=== PATIENT | female | born 1940 | race Caucasian/White ===

== ENCOUNTER 2016-08-28 15:28 | Emergency (ER) | payer OTHER ==
[~2016-08-28] VITALS: Ht 168.9 cm; Wt 105.0 kg
[~2016-08-28 15:28] MED LIST: ATOR10TA PO; BENA25MI PO; BUME1TAB PO; CALCCHW6 PO; E-40CAP PO; FISH1000 PO; FLON0.053 EACH NARE; HYDR-3535 PO; LEVO.025 PO; MACR100C PO; MULTTAB62 PO; OMEP20TA39 PO; RIVA20 PO
[2016-08-28 15:36] VITALS: BP 140/75; PULSE 83; RESP 18; TEMP 97.7; O2SAT 95
[2016-08-28] MEDS ORDERED: SODIUM CHLORIDE 0.9% FLUSH 10 ML FLUSH IVF PRN (16:00)
[2016-08-28] MEDS ORDERED: BUME1TAB PO (16:02)
[2016-08-28] MEDS ORDERED: OMEP20TA PO (16:02)
[2016-08-28] MEDS ORDERED: LEVO25TA4 PO (16:02)
[2016-08-28] MEDS ORDERED: ATOR10TA15 PO (16:02)
[2016-08-28] MEDS ORDERED: HYDR-3535 PO (16:02)
[2016-08-28 16:22] LABS: BASOPHIL % 0.6 % (0.0-2.0); EOSINOPHIL # 0.5 TH/MM3 (0-0.4); EOSINOPHIL % 6.1 % (0.0-4.0); HEMO FLAGS DIFF FINAL; LYMPH % 23.9 % (9.0-44.0); LYMPHOCYTE # 1.8 TH/MM3 (1.0-4.8); MEAN CELL VOLUME 89.6 FL (80.0-100.0); MEAN CORPUSCULAR HEMOGLOBIN 29.5 PG (27.0-34.0); MEAN CORPUSCULAR HGB CONC 32.9 % (32.0-36.0); MONO % 5.4 % (0.0-8.0); PLATELET COUNT 292 TH/MM3 (150-450); RED BLOOD COUNT 4.13 MIL/MM3 (4.00-5.30); WHITE BLOOD COUNT 7.7 TH/MM3 (4.0-11.0)
[2016-08-28 16:38] LABS: CHLORIDE 106 MEQ/L (98-107); POTASSIUM 4.2 MEQ/L (3.5-5.1); SODIUM (NA) 141 MEQ/L (136-145)
[2016-08-28 16:42] LABS: ANION GAP 5 MEQ/L (5-15); BICARBONATE 29.9 MEQ/L (21.0-32.0); BLOOD UREA NITROGEN 27 MG/DL (7-18); MAGNESIUM 2.2 MG/DL (1.5-2.5)
[2016-08-28 16:45] LABS: ALT (GPT) 24 U/L (10-53); AST (GOT) 21 U/L (15-37); GLOMERULAR FILTRATION RATE 72 ML/MIN (>89)
[2016-08-28 16:46] LABS: TOTAL BILIRUBIN ADULT 0.6 MG/DL (0.2-1.0)
--- NOTE | 2016-08-28 16:46 | PD ---
HPI Chief Complaint: Respiratory Symptoms Time Seen by Provider: 15:40 Travel History International Travel<30 days: No Contact w/Intl Traveler<30days: No Traveled to known affect area: No History of Present Illness HPI This 76 year-old woman who presents to the emergency department complaining of increasing shortness of breath, dyspnea on exertion, fatigue, weakness, and occasional confusion. She is a history of obstructive sleep apnea. She uses a BiPAP at night. She also is a history of PE that was provoked by leg surgery, with a splint on her right leg, and the setting of obesity and taking HRT. She was treated last year completed 6 months of therapy was Xarelto was taken off. She has done well until the past several weeks or develop worsening shortness of breath symptoms. No cough or cold. No real chest pain. Daughter is with her notices that she's been more confused recently. She does have all the daytime somnolence. She has some chronic leg pain and discomfort. She was feeling a bit more swollen and more painful recently. History Past Medical History Narrative Medical Hypertension hyperlipidemia DVT/PE, provoked, status post 6 months of Xarelto Obesity Sleep apnea Tetanus Vaccination: Unknown Social History Alcohol Use: Yes (SOCIALLY) Tobacco Use: No Allergies-Medications (Allergen,Severity, Reaction): Coded Allergies: No Known Allergies (Unverified , 08/28/16) Reported Meds & Prescriptions Reported Meds & Active Scripts Active Reported Lortab (Hydrocodone-Acetaminophen) 10-325 Mg Tab 1 Tab PO Q6H PRN Levothyroxine (Levothyroxine Sodium) 25 Mcg Tab 25 Mcg PO DAILY Atorvastatin (Atorvastatin Calcium) 10 Mg Tab 10 Mg PO HS Omeprazole 20 Mg Tab 20 Mg PO BID Bumetanide 1 Mg Tab 1 Mg PO DAILY Review of Systems Except as stated in HPI: all other systems reviewed are Neg Physical Exam Narrative GENERAL: 76 year-old woman, no acute distress. SKIN: Focused skin assessment warm/dry. HEAD: Atraumatic. Normocephalic. CARDIOVASCULAR: Regular rate and rhythm. No murmur appreciated. RESPIRATORY: No accessory muscle use. Clear to auscultation. Breath sounds equal bilaterally. GASTROINTESTINAL: Abdomen is obese and soft. Is sniffing tenderness. MUSCULOSKELETAL: No obvious deformities. Chronic edema both lower extremities. No obvious asymmetry. No erythema or redness. NEUROLOGICAL: Awake and alert. No obvious cranial nerve deficits. Motor grossly within normal limits. Normal speech. PSYCHIATRIC: Appropriate mood and affect; insight and judgment normal. Data Data Last Documented VS Vital Signs Date Time Temp Pulse Resp B/P Pulse Ox O2 Delivery O2 Flow Rate FiO2 08/28/16 17:53 16 96 Nasal Cannula 2 08/28/16 17:51 71 152/74 08/28/16 15:36 97.7 Orders Complete Blood Count With Diff (08/28/16 15:59) Comprehensive Metabolic Panel (08/28/16 15:59) B-Type Natriuretic Peptide (08/28/16 15:59) Magnesium (Mg) (08/28/16 15:59) Troponin I (08/28/16 15:59) Iv Access Insert/Monitor (08/28/16 15:59) Ecg Monitoring (08/28/16 15:59) Oximetry (08/28/16 15:59) Oxygen Administration (08/28/16 15:59) Chest, Single Ap (08/28/16 15:59) Sodium Chloride 0.9% Flush (Ns Flush) (08/28/16 16:00) Us Leg Venous Doppler Bilat (08/28/16 ) Ct Pulmonary Angiogram (08/28/16 ) D-Dimer (08/28/16 16:23) Labs Laboratory Tests Test 08/28/16 16:00 White Blood Count 7.7 TH/MM3 Red Blood Count 4.13 MIL/MM3 Hemoglobin 12.2 GM/DL Hematocrit 37.0 % Mean Corpuscular Volume 89.6 FL Mean Corpuscular Hemoglobin 29.5 PG Mean Corpuscular Hemoglobin 32.9 % Concent Red Cell Distribution Width 15.0 % Platelet Count 292 TH/MM3 Mean Platelet Volume 8.6 FL Neutrophils (%) (Auto) 64.0 % Lymphocytes (%) (Auto) 23.9 % Monocytes (%) (Auto) 5.4 % Eosinophils (%) (Auto) 6.1 % Basophils (%) (Auto) 0.6 % Neutrophils # (Auto) 5.0 TH/MM3 Lymphocytes # (Auto) 1.8 TH/MM3 Monocytes # (Auto) 0.4 TH/MM3 Eosinophils # (Auto) 0.5 TH/MM3 Basophils # (Auto) 0.0 TH/MM3 CBC Comment DIFF FINAL Differential Comment D-Dimer Quantitative (PE/DVT) 0.98 MG/L FEU Sodium Level 141 MEQ/L Potassium Level 4.2 MEQ/L Chloride Level 106 MEQ/L Carbon Dioxide Level 29.9 MEQ/L Anion Gap 5 MEQ/L Blood Urea Nitrogen 27 MG/DL Creatinine 0.78 MG/DL Estimat Glomerular Filtration 72 ML/MIN Rate Random Glucose 103 MG/DL Calcium Level 8.1 MG/DL Magnesium Level 2.2 MG/DL Total Bilirubin 0.6 MG/DL Aspartate Amino Transf 21 U/L (AST/SGOT) Alanine Aminotransferase 24 U/L (ALT/SGPT) Alkaline Phosphatase 91 U/L Troponin I LESS THAN 0.02 NG/ML B-Type Natriuretic Peptide 25 PG/ML Total Protein 6.9 GM/DL Albumin 3.1 GM/DL MDM Medical Decision Making Medical Screen Exam Complete: Yes Emergency Medical Condition: Yes Interpretation(s) My review of EKG: Sinus rhythm at a rate of 74, left axis deviation, anteroseptal Q waves, septal T wave flattening and T-wave inversions, left axis deviation with what appear to be inferior Q waves. Overall compared to previous EKG mike change. Chest x-ray: Negative Doppler bilateral lower extremities: Nonocclusive thrombus in the right femoral vein. I called and spoke with Dr. Patterson about the ultrasound findings. She had a previous ultrasound in May of this year. Both ultrasound show nonocclusive clot in the femoral vein. Compared to the previous, clot burden appears to be a little bit more substantial although this could be simply related to technique. Previously involved more the mid to distal femoral vein, now more the proximal to mid femoral vein. LABS CBC unremarkable. Mild eosinophilia. Elevation of the BUN. The creatinine. Troponin negative BNP normal Differential Diagnosis Deconditioning, debility, PE, ACS, pleural effusion, other Narrative Course Medical decision making This 76-year-old man who presents to the emergency department complaining of shortness of breath. Looks well. Concern for recurrent DVT or PE. Deconditioning, sleep apnea, could've some more faxed. She looks overall well. Sign significant distress. We'll check labs, ultrasound of her legs, CT for pulmonary embolism, EKG and troponin, reassess. FINAL: This 76 year-old woman with what appears to be residual blood clot. I spoke with Dr. Patterson, we compared the ultrasounds from May to the one today. He states maybe is a little bit more proximal, maybe it's a little bit bigger but differences could also be accounted for by technique. We'll get a CT scan for pulmonary angiogram to look for PE. Our CT scanner is still down and may not be a for another couple hours. We'll send her to the july need a CT pulmonary angiogram. If negative will place her back on Xarelto have her follow -up with Dr. Rosas to see if she needs for lifelong anticoagulation or if she can be followed with serial ultrasounds. If she has a PE she'll be admitted. Patient was signed out to Dr. Walker to follow-up on the results of CT pulmonary angiogram. Abraham Rodriguez MD Aug 28, 2016 16:46
--- NOTE | 2016-08-28 16:47 | RADHPO ---
EXAM DATE/TIME: 08/28/2016 16:25 [facility] COMPARISON: CHEST SINGLE AP, October 10, 2015, 17:18. INDICATIONS : Patient has been short of breath for two weeks. MEDICAL HISTORY : None. SURGICAL HISTORY : L-spine fusion. ENCOUNTER: Initial ACUITY: 2 weeks PAIN SCORE: 0/10 LOCATION: Bilateral chest FINDINGS: Lungs are slightly hyperexpanded. No significant focal pleural-parenchymal opacities. Cardiomediastin al contours are stable. Bony thorax is intact. CONCLUSION: 1. No acute abnormality or significant interval change. Josh Marin MD on August 28, 2016 at 16:41 Board Certified Radiologist. This report was verified electronically.
[2016-08-28 16:48] LABS: ALKALINE PHOSPHATASE 91 U/L (45-117)
--- NOTE | 2016-08-28 17:14 | RADHPO ---
EXAM DATE/TIME: 08/28/2016 16:36 [facility] COMPARISON: US LEG BILATERAL VENOUS DOPPLER, October 11, 2015, 15:22. EXTERNAL COMPARISON : [facility], US LEG, RIGHT VENOUS DOPPLER, June 25, 2016 INDICATIONS : Bilateral leg edema. MEDICAL HISTORY : Hypercholesterolemia. Hypertension. Deep venous thrombosis. Thyroid disease. Right leg numbness. Car diac disorders. Sleep apnea. GERD. Arthritis. Osteoarthritis. Hypothyroidism. SURGICAL HISTORY : Appendectomy.Hysterectomy. Deviated septum. Spinal fusion L5-S1 x3. Right knee torn meniscus repair a rthroscopy. ENCOUNTER: Subsequent ACUITY: >1 year PAIN SCORE: 2/10 LOCATION: Bilateral leg. TECHNIQUE: Venous ultrasound of the left and right leg was performed from the inguinal ligament to the proximal calf. Real-time, color Doppler and spectral tracing, compression and augmentation techniques were us ed. FINDINGS: RIGHT LEG: There is incomplete compression and abnormal intraluminal echoes within the proximal to distal femora l vein. There is still some residual blood flow within this vessel. The common femoral vein and popli teal veins are patent. LEFT LEG: There is normal compressibility of the deep venous system from the inguinal region to the proximal ca lf. No echogenic clot is seen in the lumen of the common femoral, femoral, popliteal, and posterior tibial veins. There is a normal response of the venous system to proximal and distal augmentation an d respiration. CONCLUSION: 1. There is nonocclusive thrombus within the right femoral vein. Remaining right lower extremity vein s are patent. 2. No DVT is identified in the left lower extremity. Andrey Clement MD on August 28, 2016 at 17:11 Board Certified Radiologist. This report was verified electronically.
[2016-08-28 17:51] VITALS: BP 152/74; PULSE 71; RESP 16; O2SAT 98
[2016-08-28 17:53] VITALS: RESP 16; O2SAT 96
[2016-08-28] MEDS ORDERED: IOHEXOL 350 MG/ML 10 ML VIAL (for RAD DIAG) IV ONE (20:25)
--- NOTE | 2016-08-28 20:41 | RADRPT ---
EXAM DATE/TIME: 08/28/2016 20:15 [facility] COMPARISON: CT PULMONARY ANGIOGRAM, October 10, 2015, 19:23. INDICATIONS : Shortness of breath. IV CONTRAST: 70 cc Omnipaque 350 (iohexol) IV RADIATION DOSE: 23.23 CTDIvol (mGy) MEDICAL HISTORY : Cardiovascular disease. Hypertension. SURGICAL HISTORY : None. ENCOUNTER: Initial ACUITY: 1 day PAIN SCALE: 0/10 LOCATION: chest TECHNIQUE: Volumetric scanning of the chest was performed using a pulmonary embolism protocol MIP images were re constructed. Using automated exposure control and adjustment of the mA and/or kV according to patien t size, radiation dose was kept as low as reasonably achievable to obtain optimal diagnostic quality images. FINDINGS: PULMONARY ARTERIES: No filling defects are seen in the pulmonary arteries through the segmental level. LUNGS: Calcified granulomas noted bilaterally. Emphysematous changes observed within the upper lobes. No mas s or acute infiltrate. PLEURAE: There is no pleural thickening or pleural effusion. MEDIASTINUM: The heart is mildly enlarged. Homogeneously calcified lymph nodes are seen within the hilar structure s bilaterally. Aorta is normal in caliber. No adenopathy. Coronary artery atherosclerotic calcificati ons. MUSCULOSKELETAL: Within normal limits for patient age. MISCELLANEOUS: The visualized upper abdominal organs demonstrate no acute abnormality. CONCLUSION: 1. No PE. 2. Prior granulomatous disease. 3. Cardiomegaly. 4. Coronary artery atherosclerotic calcifications. Rubens Patterson Jr., MD on August 28, 2016 at 20:37 Board Certified Radiologist. This report was verified electronically.
[2016-08-28 20:55] VITALS: BP 169/75; PULSE 74; RESP 18; O2SAT 96
--- NOTE | 2016-08-28 21:17 | PD ---
Physical Exam Time Seen by Provider: 21:[address] Rodriguez left this patient with me to check the CT angiogram for pulmonary embolus and to discharge if there was no embolus. Data Data Last Documented VS Vital Signs Date Time Temp Pulse Resp B/P Pulse Ox O2 Delivery O2 Flow Rate FiO2 08/28/16 20:55 74 18 169/75 96 08/28/16 20:55 Nasal Cannula 2 08/28/16 15:36 97.7 Orders Complete Blood Count With Diff (08/28/16 15:59) Comprehensive Metabolic Panel (08/28/16 15:59) B-Type Natriuretic Peptide (08/28/16 15:59) Magnesium (Mg) (08/28/16 15:59) Troponin I (08/28/16 15:59) Iv Access Insert/Monitor (08/28/16 15:59) Ecg Monitoring (08/28/16 15:59) Oximetry (08/28/16 15:59) Oxygen Administration (08/28/16 15:59) Chest, Single Ap (08/28/16 15:59) Sodium Chloride 0.9% Flush (Ns Flush) (08/28/16 16:00) Us Leg Venous Doppler Bilat (08/28/16 ) Ct Pulmonary Angiogram (08/28/16 ) D-Dimer (08/28/16 16:23) Iohexol 350 Inj (Omnipaque 350 Inj) (08/28/16 20:25) Labs Laboratory Tests Test 08/28/16 16:00 White Blood Count 7.7 TH/MM3 Red Blood Count 4.13 MIL/MM3 Hemoglobin 12.2 GM/DL Hematocrit 37.0 % Mean Corpuscular Volume 89.6 FL Mean Corpuscular Hemoglobin 29.5 PG Mean Corpuscular Hemoglobin 32.9 % Concent Red Cell Distribution Width 15.0 % Platelet Count 292 TH/MM3 Mean Platelet Volume 8.6 FL Neutrophils (%) (Auto) 64.0 % Lymphocytes (%) (Auto) 23.9 % Monocytes (%) (Auto) 5.4 % Eosinophils (%) (Auto) 6.1 % Basophils (%) (Auto) 0.6 % Neutrophils # (Auto) 5.0 TH/MM3 Lymphocytes # (Auto) 1.8 TH/MM3 Monocytes # (Auto) 0.4 TH/MM3 Eosinophils # (Auto) 0.5 TH/MM3 Basophils # (Auto) 0.0 TH/MM3 CBC Comment DIFF FINAL Differential Comment D-Dimer Quantitative (PE/DVT) 0.98 MG/L FEU Sodium Level 141 MEQ/L Potassium Level 4.2 MEQ/L Chloride Level 106 MEQ/L Carbon Dioxide Level 29.9 MEQ/L Anion Gap 5 MEQ/L Blood Urea Nitrogen 27 MG/DL Creatinine 0.78 MG/DL Estimat Glomerular Filtration 72 ML/MIN Rate Random Glucose 103 MG/DL Calcium Level 8.1 MG/DL Magnesium Level 2.2 MG/DL Total Bilirubin 0.6 MG/DL Aspartate Amino Transf 21 U/L (AST/SGOT) Alanine Aminotransferase 24 U/L (ALT/SGPT) Alkaline Phosphatase 91 U/L Troponin I LESS THAN 0.02 NG/ML B-Type Natriuretic Peptide 25 PG/ML Total Protein 6.9 GM/DL Albumin 3.1 GM/DL [facility] Medical Record Reviewed: Yes Supervised Visit with KELLY: Yes Differential Diagnosis Pulmonary embolus, pneumonia, bronchitis, anxiety/hyperventilation Narrative Course The patient has slight hyperventilation etiology undetermined. There is no evidence for pulmonary emboli. Plan: Follow up with her primary care physician, call tomorrow morning to set up an appointment. Additional Instruction: Call tomorrow morning to set up appointment with your primary care physician or Dr. Foley. Med/Other Pt SpecificInfo: No Change to Meds Disposition: 01 DISCHARGE HOME Condition: Stable Joseph Walker MD Aug 28, 2016 21:17
[2016-08-28] MEDS ORDERED: XARE20TA PO (21:20)
[2016-08-28] MEDS ORDERED: XARE15TA PO (21:22)
--- NOTE | 2016-08-29 12:21 | EKG ---
Date Performed: 08/28/2016 Time Performed: 15:31:48 PTAGE: 76 years EKG: Sinus rhythm with 1st degree A-V block Left axis deviation Possible anteroseptal infarct - age undetermined Abnor mal ECG Compared to the PREVIOUS TRACING PREVIOUS TRACIN11/04/2015 14.19 DOCTOR: Hudson Gaxiola Interpretating Date/Time 08/29/2016 12:19:03
== END 2016-08-28 21:30 | disposition home or self-care (01) ==
LOC: PHED 15:28
DX: R06.4 Hyperventilation (principal); I82.411 Acute embolism and thrombosis of right femoral vein; R94.31 Abnormal electrocardiogram [ECG] [EKG]; Z79.01 Long term (current) use of anticoagulants; R60.0 Localized edema
CPT/HCPCS: 71010; 71275; 80053; 83735; 83880; 84484; 85025; 85379; 93005; 93970; 99285; Q9967

== ENCOUNTER 2016-12-10 13:05 | Emergency (ER) | payer OTHER ==
[~2016-12-10] VITALS: Ht 167.6 cm; Wt 100.0 kg
[~2016-12-10 13:05] MED LIST changes: -ATOR10TA PO; +ATOR10TA15 PO; -BENA25MI PO; -CALCCHW6 PO; -E-40CAP PO; -FISH1000 PO; -FLON0.053 EACH NARE; -LEVO.025 PO; +LEVO25TA4 PO; -MACR100C PO; -MULTTAB62 PO; +OMEP20TA PO; -OMEP20TA39 PO; -RIVA20 PO; +XARE15TA PO; +XARE20TA PO
[2016-12-10 13:08] VITALS: BP 110/63; PULSE 95; RESP 20; TEMP 98.1; O2SAT 94
[2016-12-10] MEDS ORDERED: OXYC1TAB36 PO (13:42)
[2016-12-10] MEDS ORDERED: XARE10TA PO ×2 (13:42→15:10)
[2016-12-10] MEDS ORDERED: FENT75DI T-DERMAL (13:42)
--- NOTE | 2016-12-10 13:55 | PD ---
HPI Chief Complaint: Fall Time Seen by Provider: 13:22 Travel History International Travel<30 days: No Contact w/Intl Traveler<30days: No Traveled to known affect area: No History of Present Illness HPI Patient is a 76-year-old female presents emergency department evaluation of left lower extremity swelling. Patient fell on Thursday, she went to breakfast to be evaluated where they did imaging in she reports it was negative for x- ray. However since that time she's had increasing edema but her pain has been stable. She is supposed to be on Xarelto but has been out of her medication for over a week. She has a history of DVT as well as PE. Patient presents concern for DVT in her left lower leg. She is currently on a fentanyl patch for chronic pain and has been taking Percocet on top of that. Medical history is also significant for hypothyroidism, hyperlipidemia, arthritis. Patient reports the pain as a 6 out of 10 at this time and started aching and throbbing. PFSH Past Medical History Hx Anticoagulant Therapy: Yes Arthritis: Yes High Cholesterol: Yes Deep Vein Thrombosis: Yes GERD: Yes Hypertension: Yes (HX OF HT. NO LONGER ON MEDS.) Neurologic: Yes (RIGHT LEG NUMBNESS WHEN STANDING; LEFT LEG OCCAS NUMBNESS) Reproductive: Yes Sleep Apnea: Yes Thyroid Disease: Yes Past Surgical History Abdominal Surgery: Yes Appendectomy: Yes Body Medical Devices: LUMBAR CAGE, LUMBAR EMILY X2 Cardiac Surgery: No Endocrine Surgery: No Genitourinary Surgery: No Gynecologic Surgery: Yes Hysterectomy: Yes (PARTIAL) Neurologic Surgery: Yes (SPINAL FUSION L5 S1 X 3 ) Oral Surgery: Yes (DEVIATED SEPTUM) Thoracic Surgery: Yes (3 WRIST SURGERIES UNDER "OTHER") Other Surgery: Yes (REMOVAL SPINE HARDWARE EXCEPT CAGE 2011 PLACEMENT EMILY) Social History Alcohol Use: Yes (SOCIALLY) Tobacco Use: No Substance Use: No Allergies-Medications (Allergen,Severity, Reaction): Coded Allergies: No Known Allergies (Unverified , 12/10/16) Reported Meds & Prescriptions Reported Meds & Active Scripts Active Reported Oxycodone-Acetaminophen 10-325 mg Tab 1 Tab PO Q4H PRN Fentanyl Patch 72 HR (Fentanyl) 75 Mcg/Hr Patch 75 Mcg T-DERMAL Q72H Remove old patch when new one placed. Xarelto (Rivaroxaban) 10 Mg Tab 10 Mg PO BID Levothyroxine (Levothyroxine Sodium) 25 Mcg Tab 25 Mcg PO DAILY Atorvastatin (Atorvastatin Calcium) 10 Mg Tab 10 Mg PO HS Omeprazole 20 Mg Tab 20 Mg PO BID Review of Systems Except as stated in HPI: all other systems reviewed are Neg HENT: No: Headaches Cardiovascular: No: Chest Pain or Discomfort Respiratory: No: Shortness of Breath Musculoskeletal: Positive: Myalgias, Edema Skin: Positive Change in Pigmentation Physical Exam Narrative GENERAL: Obese, well-developed, alert elderly female. Resting comfortably in no distress. SKIN: Warm and dry. HEAD: Atraumatic. Normocephalic. EYES: Pupils equal and round. No scleral icterus. No injection or drainage. ENT: No nasal bleeding or discharge. Mucous membranes pink and moist. NECK: Trachea midline. No JVD. CARDIOVASCULAR: Regular rate and rhythm. RESPIRATORY: No accessory muscle use. Clear to auscultation. Breath sounds equal bilaterally. GASTROINTESTINAL: Abdomen soft, non-tender, nondistended. Hepatic and splenic margins not palpable. MUSCULOSKELETAL: Extremities without clubbing, cyanosis. Edema noted to left lower extremity, ecchymosis noted to the left lower leg, left knee in the distal aspect of the left thigh. No obvious deformities. 2+ dorsalis pedis pulse. Negative Homans sign. NEUROLOGICAL: Awake and alert. No obvious cranial nerve deficits. Motor grossly within normal limits. Five out of 5 muscle strength in the arms and legs. Normal speech. PSYCHIATRIC: Appropriate mood and affect; insight and judgment normal. Data Data Last Documented VS Vital Signs Date Time Temp Pulse Resp B/P (MAP) Pulse Ox O2 Delivery O2 Flow Rate FiO2 12/10/16 13:08 98.1 95 20 110/63 (79) 94 Room Air Orders Orders Us Leg Venous Doppler (12/10/16 ) Iv Access Insert/Monitor (12/10/16 13:46) Complete Blood Count With Diff (12/10/16 13:46) Comprehensive Metabolic Panel (12/10/16 13:46) Act Partial Throm Time (Ptt) (12/10/16 13:46) Prothrombin Time / Inr (Pt) (12/10/16 13:46) Creatine Kinase (Cpk) (12/10/16 13:46) Labs Laboratory Tests Test 12/10/16 14:00 White Blood Count 6.6 TH/MM3 Red Blood Count 3.94 MIL/MM3 Hemoglobin 11.6 GM/DL Hematocrit 35.7 % Mean Corpuscular Volume 90.6 FL Mean Corpuscular Hemoglobin 29.5 PG Mean Corpuscular Hemoglobin Concent 32.5 % Red Cell Distribution Width 14.4 % Platelet Count 252 TH/MM3 Mean Platelet Volume 8.7 FL Neutrophils (%) (Auto) 63.4 % Lymphocytes (%) (Auto) 20.6 % Monocytes (%) (Auto) 6.0 % Eosinophils (%) (Auto) 9.0 % Basophils (%) (Auto) 1.0 % Neutrophils # (Auto) 4.2 TH/MM3 Lymphocytes # (Auto) 1.4 TH/MM3 Monocytes # (Auto) 0.4 TH/MM3 Eosinophils # (Auto) 0.6 TH/MM3 Basophils # (Auto) 0.1 TH/MM3 CBC Comment DIFF FINAL Differential Comment Prothrombin Time 10.8 SEC Prothromb Time International Ratio 1.0 RATIO Activated Partial Thromboplast Time 22.2 SEC Blood Urea Nitrogen 21 MG/DL Creatinine 0.74 MG/DL Random Glucose 90 MG/DL Total Protein 6.9 GM/DL Albumin 3.1 GM/DL Calcium Level 8.5 MG/DL Alkaline Phosphatase 95 U/L Aspartate Amino Transf (AST/SGOT) 18 U/L Alanine Aminotransferase (ALT/SGPT) 20 U/L Total Bilirubin 0.6 MG/DL Sodium Level 139 MEQ/L Potassium Level 3.4 MEQ/L Chloride Level 105 MEQ/L Carbon Dioxide Level 27.6 MEQ/L Anion Gap 6 MEQ/L Estimat Glomerular Filtration Rate 77 ML/MIN Total Creatine Kinase 72 U/L MDM Medical Decision Making Medical Screen Exam Complete: Yes Emergency Medical Condition: Yes Interpretation(s) Last Impressions Lower Extremity Ultrasound 12/10/16 0000 Signed Impressions: Service Date/Time: Saturday, December 10, 2016 13:53 - CONCLUSION: No evidence of deep venous thrombosis within the right lower extremity. Dwayne Kirkland MD Laboratory Tests Test 12/10/16 14:00 White Blood Count 6.6 TH/MM3 Red Blood Count 3.94 MIL/MM3 Hemoglobin 11.6 GM/DL Hematocrit 35.7 % Mean Corpuscular Volume 90.6 FL Mean Corpuscular Hemoglobin 29.5 PG Mean Corpuscular Hemoglobin Concent 32.5 % Red Cell Distribution Width 14.4 % Platelet Count 252 TH/MM3 Mean Platelet Volume 8.7 FL Neutrophils (%) (Auto) 63.4 % Lymphocytes (%) (Auto) 20.6 % Monocytes (%) (Auto) 6.0 % Eosinophils (%) (Auto) 9.0 % Basophils (%) (Auto) 1.0 % Neutrophils # (Auto) 4.2 TH/MM3 Lymphocytes # (Auto) 1.4 TH/MM3 Monocytes # (Auto) 0.4 TH/MM3 Eosinophils # (Auto) 0.6 TH/MM3 Basophils # (Auto) 0.1 TH/MM3 CBC Comment DIFF FINAL Differential Comment Prothrombin Time 10.8 SEC Prothromb Time International Ratio 1.0 RATIO Activated Partial Thromboplast Time 22.2 SEC Blood Urea Nitrogen 21 MG/DL Creatinine 0.74 MG/DL Random Glucose 90 MG/DL Total Protein 6.9 GM/DL Albumin 3.1 GM/DL Calcium Level 8.5 MG/DL Alkaline Phosphatase 95 U/L Aspartate Amino Transf (AST/SGOT) 18 U/L Alanine Aminotransferase (ALT/SGPT) 20 U/L Total Bilirubin 0.6 MG/DL Sodium Level 139 MEQ/L Potassium Level 3.4 MEQ/L Chloride Level 105 MEQ/L Carbon Dioxide Level 27.6 MEQ/L Anion Gap 6 MEQ/L Estimat Glomerular Filtration Rate 77 ML/MIN Total Creatine Kinase 72 U/L Vital Signs Date Time Temp Pulse Resp B/P (MAP) Pulse Ox O2 Delivery O2 Flow Rate FiO2 12/10/16 13:08 98.1 95 20 110/63 (79) 94 Room Air Differential Diagnosis DVT versus hematoma versus contusion versus rhabdomyolysis versus other Narrative Course Patient is a 76-year-old female presenting to emergency department concerned for DVT in her right lower leg after sustaining a mechanical fall a few days ago. Patient's vital signs are stable, she is neurovascularly intact. Ultrasound and labs ordered and pending. Patient is supposed to be on Xarelto however she ran out over a week ago. Labs reviewed, no acute findings identified. CK order to assess per rhabdomyolysis, this was within normal limits. Ultrasound is negative for DVT. Patient will be given a prescription pressure also to continue her home dose. Patient is on 10 mg daily this dosed per her telephone order clerk room service. Patient was encouraged to keep leg elevated. She is encouraged to increase fluid intake. She is encouraged follow-up with her primary doctor as well as Dr. Hudson. She is encouraged to return to emergency department for any new or worsening symptoms. Diagnosis Primary Impression: Contusion of leg Qualified Codes: S80.11XA - Contusion of right lower leg, initial encounter Additional Impression: Chronic anticoagulation Referrals: Opal Hudson MD 2 days Patient Instructions: Contusion in Adults (ED), General Instructions Additional Instructions: Follow-up with Dr. Phillips Follow-up with her primary doctor Continue medication as prescribed Keep leg elevated Increase fluid intake Return to emergency department for any new or worsening symptoms Scripts Rivaroxaban (Xarelto) 10 Mg Tab 10 MG PO DAILY for Blood Clot Prevention for 30 Days, #30 TAB 0 Refills Prov: Chanelle Lester 12/10/16 Disposition: 01 DISCHARGE HOME Condition: Stable Chanelle Lester Dec 10, 2016 13:55
--- NOTE | 2016-12-10 14:18 | RADRPT ---
EXAM DATE/TIME: 12/10/2016 13:53 [place] COMPARISON: No previous studies available for comparison. INDICATIONS : Right leg swelling. MEDICAL HISTORY : Hypercholesterolemia. Deep venous thrombosis. Osteoarthritis. Hypothyroidism. Cataracts. Right leg numbness. HTN. Sleep apnea. GERD. SURGICAL HISTORY : Cholecystectomy. Appendectomy. Hysterectomy. Deviated septum. Spinal fusion L5-S1 x3. Right knee tor n meniscus repair arthroscopy. Spine hardware removal and placement of [place]. ENCOUNTER: Subsequent ACUITY: 4 - 6 days PAIN SCORE: 8/10 LOCATION: Right leg. TECHNIQUE: Venous ultrasound of the leg was performed from the inguinal ligament to the proximal calf. Real-devan e, color Doppler and spectral tracing, compression and augmentation techniques were used. FINDINGS: There is normal compressibility of the deep venous system from the inguinal region to the proximal ca lf. No echogenic clot is seen in the lumen of the common femoral, femoral, popliteal, and posterior tibial veins. There is a normal response of the venous system to proximal and distal augmentation an d respiration. CONCLUSION: No evidence of deep venous thrombosis within the right lower extremity. Dwayne Kirkland MD on December 10, 2016 at 14:17 Board Certified Radiologist. This report was verified electronically.
[2016-12-10 14:30] LABS: AUTOMATED NEUTROPHIL # 4.2 TH/MM3 (1.8-7.7); BASOPHIL # 0.1 TH/MM3 (0-0.2); EOSINOPHIL # 0.6 TH/MM3 (0-0.4); HEMATOCRIT 35.7 % (35.0-46.0); HEMO FLAGS DIFF FINAL; LYMPH % 20.6 % (9.0-44.0); LYMPHOCYTE # 1.4 TH/MM3 (1.0-4.8); MEAN CELL VOLUME 90.6 FL (80.0-100.0); MEAN CORPUSCULAR HEMOGLOBIN 29.5 PG (27.0-34.0); MEAN CORPUSCULAR HGB CONC 32.5 % (32.0-36.0); NEUT % 63.4 % (16.0-70.0); PLATELET COUNT 252 TH/MM3 (150-450); RED BLOOD COUNT 3.94 MIL/MM3 (4.00-5.30); RED CELL DISTRIBUTION WIDTH 14.4 % (11.6-17.2); WHITE BLOOD COUNT 6.6 TH/MM3 (4.0-11.0)
[2016-12-10 14:39] LABS: APTT (PATIENT) 22.2 SEC (24.3-30.1); PROTHROMBIN TIME - PATIENT 10.8 SEC (9.8-11.6)
[2016-12-10 14:48] LABS: ALT (GPT) 20 U/L (10-53); ANION GAP 6 MEQ/L (5-15); AST (GOT) 18 U/L (15-37); BICARBONATE 27.6 MEQ/L (21.0-32.0); BLOOD UREA NITROGEN 21 MG/DL (7-18); CHLORIDE 105 MEQ/L (98-107); GLOMERULAR FILTRATION RATE 77 ML/MIN (>89); POTASSIUM 3.4 MEQ/L (3.5-5.1); SODIUM (NA) 139 MEQ/L (136-145)
[2016-12-10 14:51] LABS: ALKALINE PHOSPHATASE 95 U/L (45-117); TOTAL BILIRUBIN ADULT 0.6 MG/DL (0.2-1.0)
[2016-12-10 14:58] LABS: CREATINE KINASE 72 U/L (26-192)
--- NOTE | 2016-12-10 16:03 | PD ---
Data Data Last Documented VS Vital Signs Date Time Temp Pulse Resp B/P (MAP) Pulse Ox O2 Delivery O2 Flow Rate FiO2 12/10/16 15:26 12/10/16 13:08 98.1 95 20 94 Room Air Orders Orders Us Leg Venous Doppler (12/10/16 ) Iv Access Insert/Monitor (12/10/16 13:46) Complete Blood Count With Diff (12/10/16 13:46) Comprehensive Metabolic Panel (12/10/16 13:46) Act Partial Throm Time (Ptt) (12/10/16 13:46) Prothrombin Time / Inr (Pt) (12/10/16 13:46) Creatine Kinase (Cpk) (12/10/16 13:46) Labs Laboratory Tests Test 12/10/16 14:00 White Blood Count 6.6 TH/MM3 Red Blood Count 3.94 MIL/MM3 Hemoglobin 11.6 GM/DL Hematocrit 35.7 % Mean Corpuscular Volume 90.6 FL Mean Corpuscular Hemoglobin 29.5 PG Mean Corpuscular Hemoglobin Concent 32.5 % Red Cell Distribution Width 14.4 % Platelet Count 252 TH/MM3 Mean Platelet Volume 8.7 FL Neutrophils (%) (Auto) 63.4 % Lymphocytes (%) (Auto) 20.6 % Monocytes (%) (Auto) 6.0 % Eosinophils (%) (Auto) 9.0 % Basophils (%) (Auto) 1.0 % Neutrophils # (Auto) 4.2 TH/MM3 Lymphocytes # (Auto) 1.4 TH/MM3 Monocytes # (Auto) 0.4 TH/MM3 Eosinophils # (Auto) 0.6 TH/MM3 Basophils # (Auto) 0.1 TH/MM3 CBC Comment DIFF FINAL Differential Comment Prothrombin Time 10.8 SEC Prothromb Time International Ratio 1.0 RATIO Activated Partial Thromboplast Time 22.2 SEC Blood Urea Nitrogen 21 MG/DL Creatinine 0.74 MG/DL Random Glucose 90 MG/DL Total Protein 6.9 GM/DL Albumin 3.1 GM/DL Calcium Level 8.5 MG/DL Alkaline Phosphatase 95 U/L Aspartate Amino Transf (AST/SGOT) 18 U/L Alanine Aminotransferase (ALT/SGPT) 20 U/L Total Bilirubin 0.6 MG/DL Sodium Level 139 MEQ/L Potassium Level 3.4 MEQ/L Chloride Level 105 MEQ/L Carbon Dioxide Level 27.6 MEQ/L Anion Gap 6 MEQ/L Estimat Glomerular Filtration Rate 77 ML/MIN Total Creatine Kinase 72 U/L [facility] Supervised Visit with KELLY: Yes Narrative Course The history, exam, and medical decision-making in the associated mid-level provider note were completed with my assistance. I reviewed and agree with the findings presented. I attest that I had a [id number] encounter with the patient on the same day, and personally performed and documented my assessment and findings in the medical record. *My assessment and Findings: 76 year-old woman, swelling in the leg. Likely contusion. History of DVT not on her at the coagulation. Ultrasound is negative. Labs unremarkable. Recommend outpatient follow-up. Diagnosis Primary Impression: Contusion of leg Additional Impression: Chronic anticoagulation Referrals: Opal Hudson MD 2 days Patient Instructions: General Instructions, Contusion in Adults (ED) Departure Forms: Tests/Procedures Additional Instruction: Follow-up with Dr. Phillips Follow-up with her primary doctor Continue medication as prescribed Keep leg elevated Increase fluid intake Return to emergency department for any new or worsening symptoms Scripts Rivaroxaban (Xarelto) 10 Mg Tab 10 MG PO DAILY for Blood Clot Prevention for 30 Days, #30 TAB 0 Refills Prov: Chanelle Lester Elizabeth RAHMAN 12/10/16 Disposition: 01 DISCHARGE HOME Condition: Stable Abraham Rodriguez MD Dec 10, 2016 16:03
== END 2016-12-10 15:39 | disposition home or self-care (01) ==
LOC: NEPE 13:05
DX: S80.11XA Contusion of right lower leg, initial encounter (principal); W19.XXXA Unspecified fall, initial encounter; Z79.01 Long term (current) use of anticoagulants
CPT/HCPCS: 80053; 82550; 85025; 85610; 85730; 93971; 99284